=== PATIENT | female | born 1980 | race Caucasian/White ===

== ENCOUNTER 2016-12-07 13:09 | Emergency (ER) | payer OTHER ==
[~2016-12-07] VITALS: Ht 160 cm; Wt 61.2 kg
--- NOTE | 2016-12-07 15:12 | ED NECK/BACK PAIN COMPLAINT ---
History of Present Illness General Chief Complaint: Low Back Pain/Injury Stated Complaint: LOWER BACK PAIN Source: patient Exam Limitations: no limitations Vital Signs & Intake/Output Vital Signs & Intake/Output Vital Signs Date Time Temp Pulse Resp B/P Pulse O2 O2 Flow FiO2 Ox Delivery Rate 12/07 1536 98.3 83 18 168/85 95 Room Air 12/07 1338 98.0 80 18 134/81 97 Room Air ED Intake and Output 12/08 0000 12/07 1200 Intake Total 0 Output Total Balance 0 Intake, Oral 0 Patient 135 lb Weight Allergies Coded Allergies: No Known Allergies (12/07/16) Reconcile Medications Cyclobenzaprine HCl 10 MG TABLET 1 TAB PO QPM PRN MUSCLE RELAXATION Ketorolac Tromethamine 10 MG TABLET 1 TAB PO TID PRN PAIN RECEIVED IM IN ER Triage Note: C/O LOWER BACK PAIN RADIATING TO BACK OF LEGS X 2 DAYS, WORSE AFTER CLENAING HOUSE YESTERDAY, UNABLE TO BEND. PMH: LUMBAR FUSING 2009. Triage Nurses Notes Reviewed? yes Onset: Gradual Duration: constant Timing: recent history Location: lumbar spine, paraspinous muscles Radiation: buttocks Loss of Consciousness: no loss of consciousness : No Patient currently breastfeeds: No HPI: Patient is a 36-year-old female with a past medical history of lumbar fusion approximately 7 years ago who presents emergency room with a 2 day history of low back pain. Patient states that the pain gradually occurred after she was cleaning her house ALL DAY where she describes sharp stabbing severe generalized low back pain with radiation to her bilateral gluteal regions that occurred later on in the evening. Patient denies any mechanism of injury or traumatic acute pain complaint Patient has been taking her previously prescribed narcotics with no relief of symptoms DENIES any bowel or bladder incontinence or saddle paresthesia. Denies any fever chills (QUITA POSADAS) Past History Travel History Traveled to [place] past 21 day No Medical History Any Pertinent Medical History? none Neurological: NONE EENT: NONE Cardiovascular: NONE Respiratory: NONE Gastrointestinal: NONE Hepatic: NONE Renal: NONE Musculoskeletal: NONE Psychiatric: NONE Endocrine: NONE Surgical History Surgical History: spinal fusion (LUBAR) Psychosocial History What is your primary language Maldivian Tobacco Use: Current Daily Use Daily Tobacco Use Amount/Type: => 5 Cigarettes daily ETOH Use: occasional use Family History Hx Contributory? No (QUITA POSADAS) Review of Systems Review of Systems Constitutional: Reports: no symptoms. Eyes: Reports: no symptoms. Ears, Nose, Throat, Mouth: Reports: no symptoms. Respiratory: Reports: no symptoms. Cardiovascular: Reports: no symptoms. Gastrointestinal/Abdominal: Reports: no symptoms. Musculoskeletal: Reports: see HPI, back pain, muscle pain, muscle stiffness. Skin: Reports: no symptoms. Neurological/Psychological: Reports: see HPI. Denies: numbness, paresthesia. All Other Systems: Reviewed and Negative (QUITA POSADAS) Physical Exam Physical Exam General Appearance: mild distress Neck: normal inspection, supple, full range of motion Skin: intact, normal color, warm/dry Comments: HEENT: Atraumatic, extraocular motion intact Neck: Supple, no lymphadenopathy Back: Normal inspection generalized point tenderness noted No central spinous tenderness Respiratory: No respiratory distress Extremities: No edema, full range of motion Bilateral lower extremity myotomes dermatomes DTRs intact Straight leg raise positive Neuro: Alert and oriented x3 Psych: Mood affect normal, normal memory normal judgment. (QUITA POSADAS) Progress Differential Diagnosis: AAA, C spine injury, carotid dissection, cauda equina syn, herniated disc, myofascial strain, pyelo/UTI, sciatica, spinal cord inj, thoracic outlet syn, T/L spine injury, ureterolithiasis Plan of Care: Current Medications Sig/Manasa Start time Last Medication Dose Stop Time Status Admin Dexamethasone 8 MG ONCE ONE 12/07 1530 AC (Decadron) 12/07 1531 Ketorolac 30 MG ONCE ONE 12/07 1530 AC Tromethamine 12/07 1531 (Toradol) Patient at this time due to history of present illness and exam findings shows no compromise of lower extremity neurovascular function no concern of CUADA EQUINA Normal steady gait on discharge. Patient was strongly advised to follow-up WITH HER PCP and surgeon (QUITA POSADAS) Departure Departure Disposition: HOME OR SELF CARE Condition: Stable Clinical Impression Primary Impression: Low back strain Secondary Impressions: Lumbar radiculopathy Referrals: DARYN SANCHEZ MD (PCP/Family) Additional Instructions: As discussed begin icing the area directly 20 minutes every 2 hours. Begin the prescription a ketorolac for pain and inflammation. Begin the prescription of cyclobenzaprine for muscle relaxation. Activity as tolerated. If symptoms worsen return to emergency room. Follow-up on Friday with her primary care doctor and/or your surgeon for further evaluation treatment. prescription is waiting at your pharmacy Departure Forms: Customer Survey General Discharge Information Prescriptions: Current Visit Scripts Ketorolac Tromethamine 1 TAB PO TID PRN PAIN #15 TAB RECEIVED IM IN ER Cyclobenzaprine HCl 1 TAB PO QPM PRN MUSCLE RELAXATION #10 TAB (QUITA POSADAS) PA/REMOTE SENSING SPECIALIST Co-Sign Statement Statement: ED Attending supervision documentation- [] I saw and evaluated the patient. I have also reviewed all the pertinent lab results and diagnostic results. I agree with the findings and the plan of care as documented in the PA's/REMOTE SENSING SPECIALIST's documentation. [X] I have reviewed the ED Record and agree with the PA's/REMOTE SENSING SPECIALIST's documentation. [] Additions or exceptions (if any) to the PAs/REMOTE SENSING SPECIALIST's note and plan are summarized below: [] (CARLITOS PEREZ,GABRIELLA)
[2016-12-07] MEDS ORDERED: KETOROLAC TROME10 M1 PO (15:27)
[2016-12-07] MEDS ORDERED: CYCLOBENZAPRINE10 M1 PO (15:27)
[2016-12-07 15:36] VITALS: BP 168/85
== END 2016-12-07 15:42 ==
LOC: ERH 13:09
DX: S39.012A Strain of muscle, fascia and tendon of lower back, initial encounter (principal); M54.16 Radiculopathy, lumbar region; X58.XXXA Exposure to other specified factors, initial encounter; Y92.009 Unspecified place in unspecified non-institutional (private) residence as the place of occurrence of the external cause; Y93.9 Activity, unspecified
CPT/HCPCS: 96372; J1885